=== PATIENT | male | born 1975 | race Caucasian/White ===

== ENCOUNTER 2018-07-03 06:58 | Inpatient (IN) | payer MEDICAID ==
[~2018-07-03] VITALS: Ht 170.2 cm; Wt 84.9 kg
[~2018-07-03 06:58] MED LIST: LEVE500T53 PO; LEVO25TA9 PO; OMEP20 PO; QUET100T PO
[2018-07-03] MEDS ORDERED: QUET200T PO (11:04)
[2018-07-03] MEDS ORDERED: MIRT30 PO (11:04)
[2018-07-03] MEDS ORDERED: QUET100T PO (11:04)
[2018-07-03] MEDS ORDERED: HALO10 PO (11:04)
[2018-07-03] MEDS ORDERED: GABA-531 PO (11:04)
[2018-07-03] MEDS ORDERED: METF-960 PO (11:04)
[2018-07-03 11:07] VITALS: BP 150/95
[2018-07-03] MEDS ORDERED: ZOLPIDEM TARTRATE 10 MG TABLET PO PRN (11:30)
[2018-07-03] MEDS ORDERED: HALOPERIDOL 5 MG TABLET PO PRN (11:30)
[2018-07-03 16:24] VITALS: BP 136/88
[2018-07-03] MEDS: BENZTROPINE MESYLATE 1 MG TABLET PO SCH (16:39)
[2018-07-03 17:19] LABS: GLUCOMETER DEV NAME(LOC) BV2S.; GLUCOSE,POINT OF CARE 169 MG/DL (70-110)
[2018-07-03] MEDS ORDERED: GLUCAGON,HUMAN RECOMBINANT 1 MG VIAL IM PRN (19:00)
[2018-07-03 20:59] LABS: GLUCOMETER DEV NAME(LOC) BV2S.; GLUCOSE,POINT OF CARE 132 MG/DL (70-110)
[2018-07-03] MEDS ORDERED: HALOPERIDOL 10 MG TABLET PO SCH (21:00)
[2018-07-04 00:50] VITALS: BP 136/86
[2018-07-04] MEDS: LORazepam 2 MG TABLET PO PRN ×3 (05:53→09:56)
[2018-07-04] MEDS: MetFORMIN HCL 500 MG TABLET PO SCH (06:11)
[2018-07-04] MEDS: INSULIN LISPRO 100 UNITS/ML SQ PRN ×4 (06:53→21:46)
[2018-07-04 07:09] LABS: GLUCOMETER DEV NAME(LOC) BV2S.; GLUCOSE,POINT OF CARE 176 MG/DL (70-110)
[2018-07-04 08:08] VITALS: BP 101/60
[2018-07-04 08:50] LABS: BASOPHILS % (AUTO) 0.3 % (0.0-2.0); EOSINOPHILS % (AUTO) 2.4 % (1.0-6.0); HEMATOCRIT 47.2 % (41-53); LYMPHOCYTES # (AUTO) 2.7 K/uL (1.0-4.8); LYMPHOCYTES % (AUTO) 43.8 % (22.0-44.0); MEAN CORPUSCULAR HEMOGLOBIN 32.1 pg (26.0-34.0); MEAN CORPUSCULAR HGB CONC 33.8 G/dL (31.0-37.0); MEAN CORPUSCULAR VOLUME 95 fL (80-100); MONOCYTES # (AUTO) 0.7 K/uL (0.1-1.0); MONOCYTES % (AUTO) 11.7 % (2.0-9.0); NEUTROPHILS # (AUTO) 2.6 K/uL (1.8-7.7); NEUTROPHILS % (AUTO) 41.8 % (40.0-70.0); PLATELET COUNT (AUTO) 250 K/uL (150-450); RED BLOOD CELL COUNT(AUTO) 4.97 MIL/uL (4.50-5.90); RED CELL DISTRIBUTION WIDTH 13.4 % (11.5-14.5)
[2018-07-04] MEDS: GABAPENTIN 300 MG CAPSULE PO SCH ×3 (09:04→17:12)
[2018-07-04] MEDS: BENZTROPINE MESYLATE 1 MG TABLET PO SCH ×2 (09:04→17:13)
[2018-07-04 09:30] LABS: ALANINE AMINOTRANSFERASE 386 U/L (12-78); ALBUMIN 3.6 g/dL (3.4-5.0); ALKALINE PHOSPHATASE 104 U/L (46-116); ANION GAP 9 mmol/L (8-16); ASPARTATE AMINOTRANSFERASE 168 U/L (15-37); BILIRUBIN,TOTAL 0.6 mg/dL (0.1-1.0); CALCIUM, TOTAL 8.6 mg/dL (8.8-10.5); CARBON DIOXIDE 27 mmol/L (22-29); CHLORIDE 101 mmol/L (98-107); CHOL/HDL RATIO 4.8 (4.2-7.3); CHOLESTEROL 114 mg/dL (131-200); CREATININE 0.89 mg/dL (0.60-1.30); FREE T4 (FREE THYROXINE) 1.05 ng/dL (0.76-1.46); GLOMERULAR FILTR. RATE CALC > 60 mL/min (>60); GLUCOSE,RANDOM 228 mg/dL (70-110); HDL CHOLESTEROL 24 mg/dL (40-60); LDL CHOL (CALC.) 73 mg/dL (0-130); POTASSIUM 3.8 mmol/L (3.5-5.1); SODIUM SERUM 137 mmol/L (136-145); THYROID STIMULATING HORMONE 9.08 uIU/mL (0.36-3.74); TOTAL PROTEIN, SERUM 7.9 g/dL (6.4-8.2); TRIGLYCERIDES 83 mg/dL (15-150); UREA NITROGEN, BLOOD 16 mg/dL (7-18)
[2018-07-04 09:44] LABS: HEMOGLOBIN A1C 8.1 % (4.5-6.2)
[2018-07-04] MEDS ORDERED: BACITRACIN 28.4 GM OINTMENT TP PRN (10:00)
[2018-07-04] MEDS ORDERED: ALBUTEROL SULFATE HFA 90 MCG/PUFF 8 GM INHALER IH PRN (10:00)
[2018-07-04] MEDS ORDERED: MAGNESIUM HYDROXIDE SUSPENSION 30 ML UDCUP PO PRN (10:00)
[2018-07-04] MEDS ORDERED: ONDANSETRON HCL 4 MG TABLET PO PRN (10:00)
[2018-07-04] MEDS ORDERED: PETROLATUM,WHITE 28 GM JELLY TP PRN (10:00)
[2018-07-04] MEDS ORDERED: BENZOCAINE/MENTHOL LOZENGE MM PRN (10:00)
[2018-07-04] MEDS ORDERED: CloNIDine HCL 0.1 MG TABLET PO PRN (10:00)
[2018-07-04] MEDS ORDERED: LOPERAMIDE HCL 2 MG CAPSULE PO PRN (10:00)
[2018-07-04] MEDS ORDERED: ACETAMINOPHEN 325 MG TABLET PO PRN (10:00)
[2018-07-04] MEDS ORDERED: MAG HYDROX/AL HYDROX/SIMETH ES 30 ML SUSPENSION UDCUP PO PRN (10:00)
[2018-07-04] MEDS ORDERED: IBUPROFEN 600 MG TABLET PO PRN (10:00)
[2018-07-04 10:39] LABS: GLUCOMETER DEV NAME(LOC) BV2S.; GLUCOSE,POINT OF CARE 169 MG/DL (70-110)
[2018-07-04] MEDS ORDERED: QUEtiapine FUMARATE 100 MG TABLET PO PRN (12:15)
[2018-07-04 16:11] VITALS: BP 118/79
[2018-07-04 16:59] LABS: GLUCOMETER DEV NAME(LOC) BV2S.; GLUCOSE,POINT OF CARE 223 MG/DL (70-110)
[2018-07-04] MEDS ORDERED: QUEtiapine FUMARATE 300 MG TABLET PO SCH (21:00)
[2018-07-04 21:44] LABS: GLUCOMETER DEV NAME(LOC) BV2S.; GLUCOSE,POINT OF CARE 187 MG/DL (70-110)
[2018-07-05 01:12] VITALS: BP 110/61
[2018-07-05] MEDS ORDERED: LEVOTHYROXINE SODIUM 50 MCG TABLET PO SCH (06:30)
[2018-07-05] MEDS: MetFORMIN HCL 500 MG TABLET PO SCH (07:27)
[2018-07-05 08:14] VITALS: BP 131/76
[2018-07-05] MEDS: GABAPENTIN 300 MG CAPSULE PO SCH ×2 (08:47→14:05)
[2018-07-05] MEDS: BENZTROPINE MESYLATE 1 MG TABLET PO SCH (09:00)
[2018-07-05] MEDS ORDERED: OMEPRAZOLE 20 MG CAPSULE PO SCH (09:00)
[2018-07-05] MEDS ORDERED: DOCUSATE SODIUM 100 MG CAPSULE PO SCH (09:00)
[2018-07-05 09:04] LABS: AMPHET/METH SCREEN,URINE POSITIVE (NEGATIVE); BARBITURATE SCREEN, URINE NEGATIVE (NEGATIVE); BENZODIAZEPINES SCREEN,URINE NEGATIVE (NEGATIVE); CANNABINOID SCREEN,URINE POSITIVE (NEGATIVE); COCAINE SCREEN,URINE NEGATIVE (NEGATIVE); METHADONE SCREEN, URINE NEGATIVE (NEGATIVE); OPIATE SCREEN,URINE NEGATIVE (NEGATIVE)
[2018-07-05 09:07] LABS: PHENCYCLIDINE SCREEN,URINE NEGATIVE (NEGATIVE)
[2018-07-05] MEDS ORDERED: QUET300T2 PO (13:52)
[2018-07-05] MEDS ORDERED: BENZ1TAB10 PO (13:52)
[2018-07-05] MEDS ORDERED: METF-960 PO (13:54)
[2018-07-05] MEDS ORDERED: LEVO50TA11 PO (13:54)
== END 2018-07-05 16:10 | disposition home or self-care (01) | DRG 750 ==
LOC: B2S 12:17 → EDSTATUS 13:22
PROVIDERS: ADMIT Psychiatry & Neurology Psychiatry; ATTEND Psychiatry & Neurology Psychiatry
DX: F25.9 Schizoaffective disorder, unspecified (principal); E11.65 Type 2 diabetes mellitus with hyperglycemia; G40.909 Epilepsy, unspecified, not intractable, without status epilepticus; F10.10 Alcohol abuse, uncomplicated; F17.200 Nicotine dependence, unspecified, uncomplicated; K21.9 Gastro-esophageal reflux disease without esophagitis; E03.9 Hypothyroidism, unspecified; Z56.0 Unemployment, unspecified; Z79.899 Other long term (current) drug therapy; Z79.890 Hormone replacement therapy
CPT/HCPCS: 80074; 80307; 83036; 84439; 84443

== ENCOUNTER 2018-07-13 12:53 | Emergency (ER) | payer MEDICAID ==
[~2018-07-13] VITALS: Ht 182.9 cm; Wt 90.9 kg
[~2018-07-13 12:53] MED LIST changes: +BENZ1TAB10 PO; +GABA-531 PO; -LEVE500T53 PO; -LEVO25TA9 PO; +LEVO50TA11 PO; +METF-960 PO; -OMEP20 PO; -QUET100T PO; +QUET300T2 PO
[2018-07-13 13:43] LABS: BASOPHILS % (AUTO) 0.3 % (0.0-2.0); EOSINOPHILS % (AUTO) 0.4 % (1.0-6.0); HEMATOCRIT 46.2 % (41-53); HEMOGLOBIN 16.1 g/dL (13.5-17.5); LYMPHOCYTES # (AUTO) 2.9 K/uL (1.0-4.8); LYMPHOCYTES % (AUTO) 31.2 % (22.0-44.0); MEAN CORPUSCULAR HEMOGLOBIN 32.1 pg (26.0-34.0); MEAN CORPUSCULAR HGB CONC 34.9 G/dL (31.0-37.0); MEAN CORPUSCULAR VOLUME 92 fL (80-100); MONOCYTES # (AUTO) 0.9 K/uL (0.1-1.0); MONOCYTES % (AUTO) 9.7 % (2.0-9.0); NEUTROPHILS # (AUTO) 5.3 K/uL (1.8-7.7); NEUTROPHILS % (AUTO) 58.4 % (40.0-70.0); PLATELET COUNT (AUTO) 240 K/uL (150-450); RED BLOOD CELL COUNT(AUTO) 5.02 MIL/uL (4.50-5.90); RED CELL DISTRIBUTION WIDTH 13.1 % (11.5-14.5)
[2018-07-13 13:54] LABS: GLUCOSE,POINT OF CARE 166 MG/DL (70-110)
[2018-07-13 13:58] LABS: ALANINE AMINOTRANSFERASE 240 U/L (12-78); ALBUMIN 3.8 g/dL (3.4-5.0); ALKALINE PHOSPHATASE 107 U/L (46-116); ANION GAP 6 mmol/L (8-16); ASPARTATE AMINOTRANSFERASE 80 U/L (15-37); BILIRUBIN,TOTAL 0.4 mg/dL (0.1-1.0); CALCIUM, TOTAL 9.1 mg/dL (8.8-10.5); CARBON DIOXIDE 30 mmol/L (22-29); CHLORIDE 101 mmol/L (98-107); CREATININE 0.76 mg/dL (0.60-1.30); GLOMERULAR FILTR. RATE CALC > 60 mL/min (>60); GLUCOSE,RANDOM 173 mg/dL (70-110); POTASSIUM 3.9 mmol/L (3.5-5.1); SODIUM SERUM 137 mmol/L (136-145); TOTAL PROTEIN, SERUM 8.3 g/dL (6.4-8.2)
[2018-07-13] MEDS ORDERED: IBUPROFEN 800 MG TABLET PO ONE (14:00)
[2018-07-13] MEDS ORDERED: ACETAMINOPHEN 500 MG TABLET PO ONE (14:00)
[2018-07-13 14:04] LABS: UREA NITROGEN, BLOOD 8 mg/dL (7-18)
[2018-07-13 15:20] LABS: AMPHET/METH SCREEN,URINE POSITIVE (NEGATIVE); BARBITURATE SCREEN, URINE NEGATIVE (NEGATIVE); BENZODIAZEPINES SCREEN,URINE NEGATIVE (NEGATIVE); CANNABINOID SCREEN,URINE POSITIVE (NEGATIVE); COCAINE SCREEN,URINE POSITIVE (NEGATIVE); METHADONE SCREEN, URINE NEGATIVE (NEGATIVE); OPIATE SCREEN,URINE NEGATIVE (NEGATIVE)
[2018-07-13 15:21] LABS: PHENCYCLIDINE SCREEN,URINE NEGATIVE (NEGATIVE)
[2018-07-13 16:30] VITALS: BP 132/72
== END 2018-07-13 17:09 | disposition home or self-care (01) ==
LOC: EMS 12:54
DX: F20.9 Schizophrenia, unspecified (principal); F15.10 Other stimulant abuse, uncomplicated; F11.10 Opioid abuse, uncomplicated; F12.90 Cannabis use, unspecified, uncomplicated; I10 Essential (primary) hypertension; F32.9 Major depressive disorder, single episode, unspecified; F17.210 Nicotine dependence, cigarettes, uncomplicated; Z59.0 Homelessness; Z79.899 Other long term (current) drug therapy
CPT/HCPCS: 36415; 80053; 80307; 82962; 85025; 99284; G0480

== ENCOUNTER 2018-07-15 23:48 | Emergency (ER) | payer MEDICAID ==
[~2018-07-15] VITALS: Ht 177.8 cm; Wt 86.4 kg
[2018-07-16] MEDS ORDERED: INSLAN SQ (00:11)
[2018-07-16 00:14] LABS: GLUCOSE,POINT OF CARE 185 MG/DL (70-110)
[2018-07-16 01:10] LABS: BASOPHILS % (AUTO) 0.3 % (0.0-2.0); EOSINOPHILS % (AUTO) 1.4 % (1.0-6.0); HEMOGLOBIN 17.3 g/dL (13.5-17.5); LYMPHOCYTES # (AUTO) 4.1 K/uL (1.0-4.8); LYMPHOCYTES % (AUTO) 49.1 % (22.0-44.0); MEAN CORPUSCULAR HEMOGLOBIN 32.1 pg (26.0-34.0); MEAN CORPUSCULAR HGB CONC 34.5 G/dL (31.0-37.0); MEAN CORPUSCULAR VOLUME 93 fL (80-100); MONOCYTES % (AUTO) 11.4 % (2.0-9.0); NEUTROPHILS # (AUTO) 3.2 K/uL (1.8-7.7); NEUTROPHILS % (AUTO) 37.8 % (40.0-70.0); PLATELET COUNT (AUTO) 255 K/uL (150-450); RED BLOOD CELL COUNT(AUTO) 5.38 MIL/uL (4.50-5.90); RED CELL DISTRIBUTION WIDTH 13.1 % (11.5-14.5)
[2018-07-16 01:20] LABS: ANION GAP 6 mmol/L (8-16); CALCIUM, TOTAL 8.8 mg/dL (8.8-10.5); CARBON DIOXIDE 30 mmol/L (22-29); CHLORIDE 101 mmol/L (98-107); CREATININE 0.91 mg/dL (0.60-1.30); GLOMERULAR FILTR. RATE CALC > 60 mL/min (>60); GLUCOSE,RANDOM 160 mg/dL (70-110); POTASSIUM 3.9 mmol/L (3.5-5.1); SODIUM SERUM 137 mmol/L (136-145); UREA NITROGEN, BLOOD 11 mg/dL (7-18)
[2018-07-16 01:25] LABS: ALANINE AMINOTRANSFERASE 209 U/L (12-78); ALKALINE PHOSPHATASE 119 U/L (46-116); ASPARTATE AMINOTRANSFERASE 90 U/L (15-37); TOTAL PROTEIN, SERUM 8.8 g/dL (6.4-8.2)
[2018-07-16 03:05] LABS: AMPHET/METH SCREEN,URINE POSITIVE (NEGATIVE); BARBITURATE SCREEN, URINE NEGATIVE (NEGATIVE); BENZODIAZEPINES SCREEN,URINE NEGATIVE (NEGATIVE); CANNABINOID SCREEN,URINE POSITIVE (NEGATIVE); COCAINE SCREEN,URINE NEGATIVE (NEGATIVE); METHADONE SCREEN, URINE NEGATIVE (NEGATIVE); OPIATE SCREEN,URINE NEGATIVE (NEGATIVE); PHENCYCLIDINE SCREEN,URINE NEGATIVE (NEGATIVE)
[2018-07-16 05:10] VITALS: BP 145/96
== END 2018-07-16 05:24 | disposition home or self-care (01) ==
LOC: EMS 23:48
DX: F20.9 Schizophrenia, unspecified (principal); F15.10 Other stimulant abuse, uncomplicated; F41.9 Anxiety disorder, unspecified; I10 Essential (primary) hypertension; F17.210 Nicotine dependence, cigarettes, uncomplicated; F12.90 Cannabis use, unspecified, uncomplicated; F14.90 Cocaine use, unspecified, uncomplicated; F11.90 Opioid use, unspecified, uncomplicated; F19.90 Other psychoactive substance use, unspecified, uncomplicated; Z59.0 Homelessness; Z79.84 Long term (current) use of oral hypoglycemic drugs; Z79.4 Long term (current) use of insulin
CPT/HCPCS: 36415; 80053; 80307; 82962; 85025; 99284; 99406; G0480

== ENCOUNTER 2018-10-07 07:24 | Inpatient (IN) | payer MEDICAID ==
[2018-10-07] VITALS (9 sets, daily range): BP systolic 110–149; BP diastolic 60–91
[~2018-10-07] VITALS: Ht 170.2 cm; Wt 85.4 kg
[~2018-10-07 07:24] MED LIST changes: +INSLAN SQ
[2018-10-07] MEDS ORDERED: TRAZ-252 PO (08:52)
[2018-10-07] MEDS ORDERED: LORazepam 2 MG TABLET PO PRN (09:00)
[2018-10-07] MEDS ORDERED: ZOLPIDEM TARTRATE 10 MG TABLET PO PRN (09:00)
[2018-10-07] MEDS ORDERED: HALOPERIDOL 5 MG TABLET PO PRN (09:00)
[2018-10-07] MEDS ORDERED: HydrOXYzine PAMOATE 50 MG CAPSULE PO PRN ×2 (11:00)
[2018-10-07] MEDS ORDERED: ACETAMINOPHEN 325 MG TABLET PO PRN (11:00)
[2018-10-07] MEDS ORDERED: MAG HYDROX/AL HYDROX/SIMETH ES 30 ML SUSPENSION UDCUP PO PRN ×2 (11:00)
[2018-10-07] MEDS ORDERED: CYANOCOBALAMIN 1,000 MCG/ML VIAL IM ONE (11:00)
[2018-10-07] MEDS ORDERED: LOPERAMIDE HCL 2 MG CAPSULE PO PRN ×2 (11:00)
[2018-10-07] MEDS ORDERED: PROMETHAZINE HCL 25 MG TABLET PO PRN (11:00)
[2018-10-07] MEDS ORDERED: TUBERCULIN, PURIFIED PROTEIN DERIVATIVE 5 TU/0.1 ML SYRINGE ID ONE (11:00)
[2018-10-07] MEDS ORDERED: CloNIDine HCL 0.1 MG TABLET PO PRN (11:00)
[2018-10-07] MEDS ORDERED: OLANZapine 5 MG RAPDIS TABLET PO PRN ×2 (11:00)
[2018-10-07] MEDS ORDERED: IBUPROFEN 600 MG TABLET PO PRN (11:00)
[2018-10-07] MEDS ORDERED: MAGNESIUM HYDROXIDE SUSPENSION 30 ML UDCUP PO PRN (11:00)
[2018-10-07] MEDS ORDERED: GuaiFENesin/D-METHORPHAN [SUGAR-FREE] 200-20MG/10 ML SYRUP UDCUP PO PRN (11:00)
[2018-10-07] MEDS: CloNIDine HCL 0.1 MG TABLET PO SCH ×3 (12:43→21:02)
[2018-10-07] MEDS ORDERED: -PHARMACY VACCINE NOTE- MISC ONE (13:15)
[2018-10-07] MEDS: GABAPENTIN 300 MG CAPSULE PO SCH ×3 (13:34→20:41)
[2018-10-07] MEDS: ACAMPROSATE CALCIUM 333 MG DR TABLET PO SCH ×2 (13:34→16:41)
[2018-10-07 14:26] LABS: GLUCOMETER DEV NAME(LOC) BV2S.; GLUCOSE,POINT OF CARE 192 MG/DL (70-110)
[2018-10-07] MEDS: THIAMINE HCL 100 MG TABLET PO SCH (16:41)
[2018-10-07] MEDS ORDERED: OLANZapine 5 MG RAPDIS TABLET PO SCH (21:00)
[2018-10-08] VITALS (8 sets, daily range): BP systolic 115–139; BP diastolic 62–84
[2018-10-08] MEDS: CloNIDine HCL 0.1 MG TABLET PO SCH ×4 (05:36→20:27)
[2018-10-08 07:42] LABS: BASOPHILS % (AUTO) 0.2 % (0.0-2.0); EOSINOPHILS % (AUTO) 2.1 % (1.0-6.0); HEMATOCRIT 43.2 % (41-53); HEMOGLOBIN 14.7 g/dL (13.5-17.5); LYMPHOCYTES # (AUTO) 3.3 K/uL (1.0-4.8); LYMPHOCYTES % (AUTO) 31.5 % (22.0-44.0); MEAN CORPUSCULAR HEMOGLOBIN 32.4 pg (26.0-34.0); MEAN CORPUSCULAR HGB CONC 34.1 G/dL (31.0-37.0); MEAN CORPUSCULAR VOLUME 95 fL (80-100); MONOCYTES % (AUTO) 10.1 % (2.0-9.0); NEUTROPHILS # (AUTO) 5.8 K/uL (1.8-7.7); NEUTROPHILS % (AUTO) 56.1 % (40.0-70.0); PLATELET COUNT (AUTO) 259 K/uL (150-450); RED BLOOD CELL COUNT(AUTO) 4.55 MIL/uL (4.50-5.90); RED CELL DISTRIBUTION WIDTH 13.7 % (11.5-14.5)
[2018-10-08 07:51] LABS: HEMOGLOBIN A1C 6.6 % (4.5-6.2)
[2018-10-08 08:19] LABS: ALANINE AMINOTRANSFERASE 18 U/L (12-78); ALKALINE PHOSPHATASE 141 U/L (46-116); ANION GAP 9 mmol/L (8-16); ASPARTATE AMINOTRANSFERASE 25 U/L (15-37); BILIRUBIN,TOTAL 0.5 mg/dL (0.1-1.0); CALCIUM, TOTAL 8.7 mg/dL (8.8-10.5); CARBON DIOXIDE 28 mmol/L (22-29); CHLORIDE 103 mmol/L (98-107); CHOL/HDL RATIO 5.5 (4.2-7.3); CHOLESTEROL 143 mg/dL (131-200); CREATININE 0.69 mg/dL (0.60-1.30); FREE T4 (FREE THYROXINE) 0.84 ng/dL (0.76-1.46); GLOMERULAR FILTR. RATE CALC > 60 mL/min (>60); GLUCOSE,RANDOM 145 mg/dL (70-110); HDL CHOLESTEROL 26 mg/dL (40-60); LDL CHOL (CALC.) 100 mg/dL (0-130); SODIUM SERUM 140 mmol/L (136-145); THYROID STIMULATING HORMONE 3.19 uIU/mL (0.36-3.74); TOTAL PROTEIN, SERUM 7.2 g/dL (6.4-8.2); TRIGLYCERIDES 85 mg/dL (15-150); UREA NITROGEN, BLOOD 4 mg/dL (7-18)
[2018-10-08] MEDS ORDERED: ONDANSETRON HCL 4 MG TABLET PO PRN (08:30)
[2018-10-08] MEDS: THIAMINE HCL 100 MG TABLET PO SCH ×2 (09:18→16:38)
[2018-10-08] MEDS: FOLIC ACID 1 MG TABLET PO SCH (09:18)
[2018-10-08] MEDS: GABAPENTIN 300 MG CAPSULE PO SCH ×4 (09:18→20:27)
[2018-10-08] MEDS: MULTIVITAMINS WITH MINERALS, THERAPEUTIC TABLET PO SCH (09:18)
[2018-10-08] MEDS: ACAMPROSATE CALCIUM 333 MG DR TABLET PO SCH ×3 (09:19→16:38)
[2018-10-08] MEDS: CEPHALEXIN MONOHYDRATE 500 MG CAPSULE PO SCH ×2 (10:53→17:22)
[2018-10-08] MEDS: QUEtiapine FUMARATE 25 MG TABLET PO SCH (16:38)
[2018-10-08] MEDS ORDERED: GLUCAGON,HUMAN RECOMBINANT 1 MG VIAL IM PRN (19:30)
[2018-10-08] MEDS ORDERED: QUEtiapine FUMARATE 100 MG TABLET PO SCH (21:00)
[2018-10-09] MEDS: CEPHALEXIN MONOHYDRATE 500 MG CAPSULE PO SCH ×4 (00:22→23:45)
[2018-10-09 00:45] VITALS: BP 102/60
[2018-10-09 00:46] VITALS: BP 102/60
[2018-10-09] MEDS: CloNIDine HCL 0.1 MG TABLET PO SCH ×4 (05:56→22:08)
[2018-10-09 06:11] LABS: GLUCOMETER DEV NAME(LOC) BV2S.; GLUCOSE,POINT OF CARE 177 MG/DL (70-110)
[2018-10-09] MEDS: INSULIN LISPRO 100 UNITS/ML SQ PRN ×2 (06:38→16:51)
[2018-10-09 08:22] VITALS: BP 108/62
[2018-10-09] MEDS: THIAMINE HCL 100 MG TABLET PO SCH ×2 (09:08→16:01)
[2018-10-09] MEDS: GABAPENTIN 300 MG CAPSULE PO SCH ×4 (09:08→20:15)
[2018-10-09] MEDS: FOLIC ACID 1 MG TABLET PO SCH (09:08)
[2018-10-09] MEDS: ACAMPROSATE CALCIUM 333 MG DR TABLET PO SCH ×3 (09:08→16:00)
[2018-10-09] MEDS: MULTIVITAMINS WITH MINERALS, THERAPEUTIC TABLET PO SCH (09:08)
[2018-10-09] MEDS: QUEtiapine FUMARATE 25 MG TABLET PO SCH ×3 (09:08→16:01)
[2018-10-09 16:30] VITALS: BP 110/64
[2018-10-09 21:00] LABS: GLUCOMETER DEV NAME(LOC) BV2S.; GLUCOSE,POINT OF CARE 154 MG/DL (70-110)
[2018-10-09] MEDS ORDERED: QUEtiapine FUMARATE 200 MG TABLET PO SCH (21:00)
[2018-10-10 00:03] VITALS: BP 112/70
[2018-10-10 00:04] VITALS: BP 112/70
[2018-10-10] MEDS: CloNIDine HCL 0.1 MG TABLET PO SCH ×4 (06:00→21:07)
[2018-10-10 06:21] LABS: GLUCOMETER DEV NAME(LOC) BV2S.; GLUCOSE,POINT OF CARE 96 MG/DL (70-110)
[2018-10-10] MEDS: GABAPENTIN 300 MG CAPSULE PO SCH ×2 (09:10→13:00)
[2018-10-10] MEDS: THIAMINE HCL 100 MG TABLET PO SCH ×2 (09:10→16:39)
[2018-10-10] MEDS: QUEtiapine FUMARATE 25 MG TABLET PO SCH ×2 (09:10→13:00)
[2018-10-10] MEDS: MULTIVITAMINS WITH MINERALS, THERAPEUTIC TABLET PO SCH (09:10)
[2018-10-10] MEDS: CEPHALEXIN MONOHYDRATE 500 MG CAPSULE PO SCH ×2 (09:10→16:39)
[2018-10-10] MEDS: ACAMPROSATE CALCIUM 333 MG DR TABLET PO SCH ×3 (09:10→16:39)
[2018-10-10] MEDS: FOLIC ACID 1 MG TABLET PO SCH (09:15)
[2018-10-10 11:20] LABS: GLUCOMETER DEV NAME(LOC) BV2S.; GLUCOSE,POINT OF CARE 277 MG/DL (70-110)
[2018-10-10] MEDS: INSULIN LISPRO 100 UNITS/ML SQ PRN ×2 (11:20→21:07)
[2018-10-10] MEDS ORDERED: QUET25TA34 PO (14:34)
[2018-10-10] MEDS ORDERED: GABA-531 PO (14:34)
[2018-10-10] MEDS ORDERED: QUET200T29 PO (14:34)
[2018-10-10] MEDS ORDERED: ACAM333T7 PO (14:34)
[2018-10-10 16:18] VITALS: BP 100/60
[2018-10-10 16:30] VITALS: BP 100/60
[2018-10-10] MEDS: GABAPENTIN 400 MG CAPSULE PO SCH ×2 (16:39→21:06)
[2018-10-10] MEDS: QUEtiapine FUMARATE 100 MG TABLET PO SCH (16:39)
[2018-10-10] MEDS ORDERED: QUEtiapine FUMARATE 300 MG TABLET PO SCH (21:00)
[2018-10-10 21:05] VITALS: BP 110/67
[2018-10-10 21:46] LABS: GLUCOMETER DEV NAME(LOC) BV2S.; GLUCOSE,POINT OF CARE 386 MG/DL (70-110)
[2018-10-11] VITALS: BP 106/62
[2018-10-11] MEDS: CEPHALEXIN MONOHYDRATE 500 MG CAPSULE PO SCH ×2 (00:01→09:14)
[2018-10-11] MEDS: CloNIDine HCL 0.1 MG TABLET PO SCH ×2 (06:00→12:00)
[2018-10-11] MEDS: LACTOBACILLUS ACIDOPHILUS/BULGARICUS GRANULES PACKET PO SCH (09:00)
[2018-10-11] MEDS ORDERED: SULFAMETHOX/TRIMETH DS 800-160 MG/TABLET PO SCH (09:00)
[2018-10-11] MEDS: MULTIVITAMINS WITH MINERALS, THERAPEUTIC TABLET PO SCH (09:13)
[2018-10-11] MEDS: FOLIC ACID 1 MG TABLET PO SCH (09:13)
[2018-10-11] MEDS: GABAPENTIN 400 MG CAPSULE PO SCH ×2 (09:13→12:41)
[2018-10-11] MEDS: ACAMPROSATE CALCIUM 333 MG DR TABLET PO SCH ×2 (09:14→12:41)
[2018-10-11] MEDS: THIAMINE HCL 100 MG TABLET PO SCH (09:14)
[2018-10-11] MEDS: QUEtiapine FUMARATE 100 MG TABLET PO SCH ×2 (09:14→12:42)
[2018-10-11] MEDS: INSULIN LISPRO 100 UNITS/ML SQ PRN (11:19)
[2018-10-11 11:25] LABS: GLUCOMETER DEV NAME(LOC) BV2S.; GLUCOSE,POINT OF CARE 350 MG/DL (70-110)
[2018-10-11] MEDS ORDERED: CEPH500 PO (11:58)
[2018-10-11] MEDS ORDERED: ACAM333T7 PO (11:58)
[2018-10-11] MEDS ORDERED: QUET300T2 PO (11:58)
[2018-10-11] MEDS ORDERED: GABA-533 PO (11:58)
[2018-10-11] MEDS ORDERED: ACID1GRA PO (11:58)
[2018-10-11] MEDS ORDERED: CEPH-582 PO (11:58)
[2018-10-11] MEDS ORDERED: SULF1TAB42 PO (11:58)
== END 2018-10-11 12:55 | disposition home or self-care (01) | DRG 750 ==
LOC: B2S 09:00
PROVIDERS: ADMIT Psychiatry & Neurology Psychiatry; ATTEND Psychiatry & Neurology Psychiatry
DX: F20.9 Schizophrenia, unspecified (principal); R45.851 Suicidal ideations; E11.65 Type 2 diabetes mellitus with hyperglycemia; E03.9 Hypothyroidism, unspecified; F15.90 Other stimulant use, unspecified, uncomplicated; F11.90 Opioid use, unspecified, uncomplicated; F17.210 Nicotine dependence, cigarettes, uncomplicated; G40.909 Epilepsy, unspecified, not intractable, without status epilepticus; F41.9 Anxiety disorder, unspecified; G47.00 Insomnia, unspecified; K59.00 Constipation, unspecified; Z71.51 Drug abuse counseling and surveillance of drug abuser; Z59.0 Homelessness; Z56.0 Unemployment, unspecified; Z79.4 Long term (current) use of insulin; Z91.19 Patient's noncompliance with other medical treatment and regimen
CPT/HCPCS: 82248; 83036; 84439; 84443; 86592; 87070; 87205; J3420

== ENCOUNTER 2018-10-22 19:42 | Inpatient (IN) | payer MEDICAID ==
[~2018-10-22] VITALS: Ht 170.2 cm; Wt 81.6 kg
[~2018-10-22 19:42] MED LIST changes: +ACAM333T7 PO; +ACID1GRA PO; -BENZ1TAB10 PO; +CEPH-582 PO; +CEPH500 PO; +GABA-533 PO; -INSLAN SQ; -LEVO50TA11 PO; -METF-960 PO; +QUET200T29 PO; +QUET25TA34 PO; +SULF1TAB42 PO
[2018-10-22] MEDS ORDERED: INSLAN SQ (19:54)
[2018-10-22 20:17] LABS: GLUCOSE,POINT OF CARE 185 MG/DL (70-110)
[2018-10-22 21:19] LABS: BASOPHILS % (AUTO) 0.3 % (0.0-2.0); EOSINOPHILS % (AUTO) 6.3 % (1.0-6.0); HEMATOCRIT 45.3 % (41-53); HEMOGLOBIN 15.3 g/dL (13.5-17.5); LYMPHOCYTES # (AUTO) 2.6 K/uL (1.0-4.8); LYMPHOCYTES % (AUTO) 45.1 % (22.0-44.0); MEAN CORPUSCULAR HEMOGLOBIN 31.7 pg (26.0-34.0); MEAN CORPUSCULAR HGB CONC 33.8 G/dL (31.0-37.0); MEAN CORPUSCULAR VOLUME 94 fL (80-100); MONOCYTES # (AUTO) 0.6 K/uL (0.1-1.0); MONOCYTES % (AUTO) 9.5 % (2.0-9.0); NEUTROPHILS # (AUTO) 2.3 K/uL (1.8-7.7); NEUTROPHILS % (AUTO) 38.8 % (40.0-70.0); PLATELET COUNT (AUTO) 275 K/uL (150-450); RED BLOOD CELL COUNT(AUTO) 4.82 MIL/uL (4.50-5.90); RED CELL DISTRIBUTION WIDTH 13.4 % (11.5-14.5)
[2018-10-22 21:33] LABS: ANION GAP 7 mmol/L (8-16); CALCIUM, TOTAL 8.4 mg/dL (8.8-10.5); CARBON DIOXIDE 27 mmol/L (22-29); CHLORIDE 100 mmol/L (98-107); CREATININE 0.79 mg/dL (0.60-1.30); GLOMERULAR FILTR. RATE CALC > 60 mL/min (>60); GLUCOSE,RANDOM 217 mg/dL (70-110); POTASSIUM 3.4 mmol/L (3.5-5.1); SODIUM SERUM 134 mmol/L (136-145); UREA NITROGEN, BLOOD 6 mg/dL (7-18)
[2018-10-22 21:40] LABS: ALANINE AMINOTRANSFERASE 101 U/L (12-78); ALBUMIN 3.4 g/dL (3.4-5.0); ALKALINE PHOSPHATASE 125 U/L (46-116); ASPARTATE AMINOTRANSFERASE 81 U/L (15-37); BILIRUBIN,TOTAL 0.3 mg/dL (0.1-1.0); TOTAL PROTEIN, SERUM 7.4 g/dL (6.4-8.2)
[2018-10-22 23:32] LABS: APPEARANCE,URINE CLEAR (CLEAR); BILIRUBIN,URINE NEGATIVE (NEGATIVE); GLUCOSE, URINE (UA) NEGATIVE (NEGATIVE); KETONES,URINE NEGATIVE (NEGATIVE); LEUKOCYTE ESTERASE ,URINE NEGATIVE (NEGATIVE); NITRATE,URINE NEGATIVE (NEGATIVE); OCCULT BLOOD,URINE NEGATIVE (NEGATIVE); PROTEIN,URINE NEGATIVE (NEGATIVE)
[2018-10-22 23:53] LABS: AMPHET/METH SCREEN,URINE NEGATIVE (NEGATIVE); BARBITURATE SCREEN, URINE NEGATIVE (NEGATIVE); BENZODIAZEPINES SCREEN,URINE NEGATIVE (NEGATIVE); CANNABINOID SCREEN,URINE POSITIVE (NEGATIVE); COCAINE SCREEN,URINE NEGATIVE (NEGATIVE); METHADONE SCREEN, URINE NEGATIVE (NEGATIVE); OPIATE SCREEN,URINE POSITIVE (NEGATIVE); PHENCYCLIDINE SCREEN,URINE NEGATIVE (NEGATIVE)
[2018-10-23] VITALS (11 sets, daily range): BP systolic 111–140; BP diastolic 61–100
[2018-10-23] MEDS ORDERED: MAG HYDROX/AL HYDROX/SIMETH ES 30 ML SUSPENSION UDCUP PO PRN (00:15)
[2018-10-23] MEDS ORDERED: IBUPROFEN 600 MG TABLET PO PRN (00:15)
[2018-10-23] MEDS ORDERED: CloNIDine HCL 0.1 MG TABLET PO PRN ×2 (00:15→09:00)
[2018-10-23] MEDS ORDERED: QUEtiapine FUMARATE 100 MG TABLET PO PRN (00:15)
[2018-10-23] MEDS ORDERED: 0.9% SODIUM CHLORIDE 10 ML SYRINGE IVP PRN (01:30)
[2018-10-23] MEDS ORDERED: ACETAMINOPHEN 325 MG TABLET PO PRN (01:30)
[2018-10-23] MEDS ORDERED: ONDANSETRON HCL 4 MG/2 ML VIAL IVP PRN (01:30)
[2018-10-23] MEDS: CloNIDine HCL 0.1 MG TABLET PO SCH ×4 (06:30→20:06)
[2018-10-23] MEDS ORDERED: PETROLATUM,WHITE 28 GM JELLY TP PRN (09:00)
[2018-10-23] MEDS ORDERED: MAGNESIUM HYDROXIDE SUSPENSION 30 ML UDCUP PO PRN (09:00)
[2018-10-23] MEDS ORDERED: LOPERAMIDE HCL 2 MG CAPSULE PO PRN (09:00)
[2018-10-23] MEDS ORDERED: DOCUSATE SODIUM 100 MG CAPSULE PO PRN (09:00)
[2018-10-23] MEDS ORDERED: BENZOCAINE/MENTHOL LOZENGE MM PRN (09:00)
[2018-10-23] MEDS ORDERED: BACITRACIN 28.4 GM OINTMENT TP PRN (09:00)
[2018-10-23] MEDS ORDERED: ALBUTEROL SULFATE HFA 90 MCG/PUFF 8 GM INHALER IH PRN (09:00)
[2018-10-23] MEDS ORDERED: OMEPRAZOLE 20 MG CAPSULE PO PRN (09:00)
[2018-10-23] MEDS ORDERED: GLUCAGON,HUMAN RECOMBINANT 1 MG VIAL IM PRN (10:15)
[2018-10-23] MEDS ORDERED: POTASSIUM CHLORIDE 20 MEQ ER TABLET PO ONE (10:15)
[2018-10-23] MEDS ORDERED: OLANZapine 5 MG RAPDIS TABLET PO PRN (12:30)
[2018-10-23] MEDS: INSULIN LISPRO 100 UNITS/ML SQ PRN ×2 (12:37→18:30)
[2018-10-23] MEDS: ACAMPROSATE CALCIUM 333 MG DR TABLET PO SCH ×2 (13:50→17:17)
[2018-10-23 14:00] LABS: GLUCOMETER DEV NAME(LOC) BV2S.; GLUCOSE,POINT OF CARE 162 MG/DL (70-110)
[2018-10-23 17:00] LABS: GLUCOMETER DEV NAME(LOC) BV2S.; GLUCOSE,POINT OF CARE 150 MG/DL (70-110)
[2018-10-23] MEDS: INSULIN GLARGINE,HUM.REC.ANLOG 100 UNITS/ML SQ SCH (21:00)
[2018-10-23] MEDS ORDERED: OLANZapine 5 MG TABLET PO SCH (21:00)
[2018-10-24] MEDS: CloNIDine HCL 0.1 MG TABLET PO SCH ×4 (06:00→22:00)
[2018-10-24] MEDS: ACAMPROSATE CALCIUM 333 MG DR TABLET PO SCH ×3 (08:33→16:32)
[2018-10-24 12:09] VITALS: BP 110/70
[2018-10-24 12:11] VITALS: BP 110/72
[2018-10-24 16:19] VITALS: BP 123/86
[2018-10-24 16:20] VITALS: BP 123/86
[2018-10-24] MEDS: INSULIN LISPRO 100 UNITS/ML SQ PRN (16:30)
[2018-10-24 16:31] LABS: GLUCOMETER DEV NAME(LOC) BV2S.; GLUCOSE,POINT OF CARE 201 MG/DL (70-110)
[2018-10-24] MEDS: QUEtiapine FUMARATE 300 MG TABLET PO SCH (21:00)
[2018-10-24] MEDS: TraZODone HCL 100 MG TABLET PO SCH (21:00)
[2018-10-24] MEDS: INSULIN GLARGINE,HUM.REC.ANLOG 100 UNITS/ML SQ SCH (21:00)
[2018-10-25] MEDS: CloNIDine HCL 0.1 MG TABLET PO SCH ×4 (06:00→22:00)
[2018-10-25 08:15] VITALS: BP 135/72
[2018-10-25 08:41] VITALS: BP 135/72
[2018-10-25] MEDS: ACAMPROSATE CALCIUM 333 MG DR TABLET PO SCH ×3 (09:00→16:15)
[2018-10-25 11:15] LABS: GLUCOMETER DEV NAME(LOC) BV2S.; GLUCOSE,POINT OF CARE 164 MG/DL (70-110)
[2018-10-25] MEDS: QUEtiapine FUMARATE 100 MG TABLET PO PRN (12:01)
[2018-10-25 16:05] VITALS: BP 139/73
[2018-10-25] MEDS: INSULIN LISPRO 100 UNITS/ML SQ PRN ×2 (17:03→20:04)
[2018-10-25] MEDS: LORazepam 2 MG TABLET PO PRN (17:04)
[2018-10-25 17:45] LABS: GLUCOMETER DEV NAME(LOC) BV2S.; GLUCOSE,POINT OF CARE 247 MG/DL (70-110)
[2018-10-25] MEDS: TraZODone HCL 100 MG TABLET PO SCH (19:59)
[2018-10-25] MEDS: QUEtiapine FUMARATE 300 MG TABLET PO SCH (19:59)
[2018-10-25] MEDS: INSULIN GLARGINE,HUM.REC.ANLOG 100 UNITS/ML SQ SCH (20:04)
[2018-10-25 20:15] LABS: GLUCOMETER DEV NAME(LOC) BV2S.; GLUCOSE,POINT OF CARE 276 MG/DL (70-110)
[2018-10-26 00:17] VITALS: BP 129/76
[2018-10-26 06:32] LABS: GLUCOMETER DEV NAME(LOC) BV2S.; GLUCOSE,POINT OF CARE 199 MG/DL (70-110)
[2018-10-26 06:37] VITALS: BP 132/82
[2018-10-26] MEDS: LORazepam 2 MG TABLET PO PRN ×2 (06:39→13:10)
[2018-10-26] MEDS: CloNIDine HCL 0.1 MG TABLET PO SCH ×4 (06:39→21:02)
[2018-10-26] MEDS: INSULIN LISPRO 100 UNITS/ML SQ PRN ×4 (07:00→20:09)
[2018-10-26] MEDS: ACAMPROSATE CALCIUM 333 MG DR TABLET PO SCH ×3 (07:49→17:00)
[2018-10-26 08:12] VITALS: BP 101/66
[2018-10-26 08:26] VITALS: BP 101/66
[2018-10-26 08:41] LABS: HEMOGLOBIN A1C 6.9 % (4.5-6.2)
[2018-10-26 09:10] LABS: ALANINE AMINOTRANSFERASE 137 U/L (12-78); ALBUMIN 3.1 g/dL (3.4-5.0); ALKALINE PHOSPHATASE 101 U/L (46-116); ANION GAP 6 mmol/L (8-16); ASPARTATE AMINOTRANSFERASE 88 U/L (15-37); BILIRUBIN,TOTAL 0.2 mg/dL (0.1-1.0); CALCIUM, TOTAL 8.8 mg/dL (8.8-10.5); CARBON DIOXIDE 26 mmol/L (22-29); CHLORIDE 104 mmol/L (98-107); CHOL/HDL RATIO 3.9 (4.2-7.3); CHOLESTEROL 94 mg/dL (131-200); CREATININE 0.57 mg/dL (0.60-1.30); GLOMERULAR FILTR. RATE CALC > 60 mL/min (>60); GLUCOSE,RANDOM 186 mg/dL (70-110); HDL CHOLESTEROL 24 mg/dL (40-60); LDL CHOL (CALC.) 57 mg/dL (0-130); SODIUM SERUM 136 mmol/L (136-145); TOTAL PROTEIN, SERUM 6.8 g/dL (6.4-8.2); TRIGLYCERIDES 65 mg/dL (15-150); UREA NITROGEN, BLOOD 10 mg/dL (7-18)
[2018-10-26 09:11] LABS: FREE T4 (FREE THYROXINE) 0.73 ng/dL (0.76-1.46); THYROID STIMULATING HORMONE 2.92 uIU/mL (0.36-3.74)
[2018-10-26 11:16] LABS: GLUCOMETER DEV NAME(LOC) BV2S.; GLUCOSE,POINT OF CARE 343 MG/DL (70-110)
[2018-10-26 16:08] VITALS: BP 119/69
[2018-10-26 16:09] VITALS: BP 119/69
[2018-10-26 16:46] LABS: GLUCOMETER DEV NAME(LOC) BV2S.; GLUCOSE,POINT OF CARE 243 MG/DL (70-110)
[2018-10-26] MEDS: QUEtiapine FUMARATE 100 MG TABLET PO PRN (16:46)
[2018-10-26] MEDS: TraZODone HCL 100 MG TABLET PO SCH (20:03)
[2018-10-26] MEDS: QUEtiapine FUMARATE 300 MG TABLET PO SCH (20:03)
[2018-10-26] MEDS: INSULIN GLARGINE,HUM.REC.ANLOG 100 UNITS/ML SQ SCH (20:09)
[2018-10-26 20:12] LABS: GLUCOMETER DEV NAME(LOC) BV2S.; GLUCOSE,POINT OF CARE 291 MG/DL (70-110)
[2018-10-27 01:20] VITALS: BP 122/77
[2018-10-27] MEDS: QUEtiapine FUMARATE 100 MG TABLET PO PRN ×3 (01:56→16:54)
[2018-10-27] MEDS: CloNIDine HCL 0.1 MG TABLET PO SCH ×4 (06:00→21:31)
[2018-10-27 08:16] VITALS: BP 120/76
[2018-10-27 08:19] VITALS: BP 120/76
[2018-10-27] MEDS: ACAMPROSATE CALCIUM 333 MG DR TABLET PO SCH ×3 (08:24→16:54)
[2018-10-27] MEDS ORDERED: LORazepam 2 MG/ML VIAL ONE (10:43)
[2018-10-27] MEDS ORDERED: HALOPERIDOL LACTATE 5 MG/ML VIAL ONE (10:43)
[2018-10-27] MEDS ORDERED: DiphenhydrAMINE HCL 50 MG/ML VIAL ONE (10:44)
[2018-10-27] MEDS ORDERED: LORazepam 2 MG/ML VIAL IM ONE (10:45)
[2018-10-27] MEDS ORDERED: DiphenhydrAMINE HCL 50 MG/ML VIAL IM ONE (10:45)
[2018-10-27] MEDS ORDERED: HALOPERIDOL LACTATE 5 MG/ML VIAL IM ONE (10:45)
[2018-10-27 16:00] VITALS: BP 135/71
[2018-10-27 16:30] VITALS: BP 135/71
[2018-10-27] MEDS: LORazepam 2 MG TABLET PO PRN (16:54)
[2018-10-27] MEDS: INSULIN GLARGINE,HUM.REC.ANLOG 100 UNITS/ML SQ SCH (21:00)
[2018-10-27] MEDS: ZOLPIDEM TARTRATE 10 MG TABLET PO PRN (21:30)
[2018-10-27] MEDS: TraZODone HCL 100 MG TABLET PO SCH (21:30)
[2018-10-27] MEDS: QUEtiapine FUMARATE 300 MG TABLET PO SCH (21:30)
[2018-10-28 06:40] VITALS: BP 106/77
[2018-10-28] MEDS: CloNIDine HCL 0.1 MG TABLET PO SCH ×4 (06:41→21:00)
[2018-10-28] MEDS: QUEtiapine FUMARATE 100 MG TABLET PO SCH ×2 (06:41→13:41)
[2018-10-28] MEDS: DIVALPROEX SODIUM 500 MG ER TABLET PO SCH (10:03)
[2018-10-28] MEDS: LORazepam 2 MG TABLET PO PRN ×2 (10:03→16:49)
[2018-10-28] MEDS: ACAMPROSATE CALCIUM 333 MG DR TABLET PO SCH ×3 (10:04→16:49)
[2018-10-28 12:06] LABS: GLUCOMETER DEV NAME(LOC) BV3N.; GLUCOSE,POINT OF CARE 384 MG/DL (70-110)
[2018-10-28] MEDS: INSULIN LISPRO 100 UNITS/ML SQ PRN ×3 (12:09→20:49)
[2018-10-28] MEDS ORDERED: QUEtiapine FUMARATE 100 MG TABLET PO SCH (13:00)
[2018-10-28 16:00] VITALS: BP 130/74
[2018-10-28] MEDS: HydrOXYzine PAMOATE 50 MG CAPSULE PO PRN (16:49)
[2018-10-28] MEDS: MetFORMIN HCL 500 MG TABLET PO SCH (16:49)
[2018-10-28 17:23] LABS: GLUCOMETER DEV NAME(LOC) BV3N.; GLUCOSE,POINT OF CARE 308 MG/DL (70-110)
[2018-10-28] MEDS: TraZODone HCL 100 MG TABLET PO SCH (20:48)
[2018-10-28] MEDS: QUEtiapine FUMARATE 300 MG TABLET PO SCH (20:48)
[2018-10-28] MEDS: INSULIN GLARGINE,HUM.REC.ANLOG 100 UNITS/ML SQ SCH (20:49)
[2018-10-28 21:00] VITALS: BP 136/82
[2018-10-28] MEDS: ZOLPIDEM TARTRATE 10 MG TABLET PO PRN (21:00)
[2018-10-28 22:08] LABS: GLUCOMETER DEV NAME(LOC) BV3N.; GLUCOSE,POINT OF CARE 264 MG/DL (70-110)
[2018-10-29] MEDS: CloNIDine HCL 0.1 MG TABLET PO SCH ×6 (06:00→21:00)
[2018-10-29] MEDS: MetFORMIN HCL 500 MG TABLET PO SCH ×2 (06:42→16:57)
[2018-10-29] MEDS: QUEtiapine FUMARATE 100 MG TABLET PO SCH ×4 (06:50→15:09)
[2018-10-29] MEDS: ACAMPROSATE CALCIUM 333 MG DR TABLET PO SCH ×5 (09:03→16:58)
[2018-10-29] MEDS: DIVALPROEX SODIUM 500 MG ER TABLET PO SCH (09:03)
[2018-10-29] MEDS: LORazepam 2 MG TABLET PO PRN ×2 (09:04→15:10)
[2018-10-29] MEDS: INSULIN LISPRO 100 UNITS/ML SQ PRN ×3 (11:50→21:02)
[2018-10-29 15:29] LABS: GLUCOMETER DEV NAME(LOC) BV3N.; GLUCOSE,POINT OF CARE 198 MG/DL (70-110)
[2018-10-29] MEDS: HydrOXYzine PAMOATE 50 MG CAPSULE PO PRN (16:58)
[2018-10-29 17:25] LABS: GLUCOMETER DEV NAME(LOC) BV3N.; GLUCOSE,POINT OF CARE 196 MG/DL (70-110)
[2018-10-29 20:58] VITALS: BP 118/76
[2018-10-29] MEDS: ZOLPIDEM TARTRATE 10 MG TABLET PO PRN (21:00)
[2018-10-29] MEDS: TraZODone HCL 100 MG TABLET PO SCH (21:00)
[2018-10-29] MEDS ORDERED: QUEtiapine FUMARATE 200 MG TABLET PO SCH (21:00)
[2018-10-29] MEDS: INSULIN GLARGINE,HUM.REC.ANLOG 100 UNITS/ML SQ SCH (21:03)
[2018-10-29 21:38] LABS: GLUCOMETER DEV NAME(LOC) BV3N.; GLUCOSE,POINT OF CARE 233 MG/DL (70-110)
[2018-10-30 03:54] VITALS: BP 125/74
[2018-10-30] MEDS: CloNIDine HCL 0.1 MG TABLET PO SCH ×2 (06:02→12:21)
[2018-10-30] MEDS: MetFORMIN HCL 500 MG TABLET PO SCH (06:35)
[2018-10-30] MEDS: QUEtiapine FUMARATE 100 MG TABLET PO SCH ×2 (06:42→12:21)
[2018-10-30] MEDS: ACAMPROSATE CALCIUM 333 MG DR TABLET PO SCH ×2 (09:00→12:21)
[2018-10-30] MEDS: DIVALPROEX SODIUM 500 MG ER TABLET PO SCH (09:00)
[2018-10-30] MEDS: LORazepam 2 MG TABLET PO PRN (10:20)
[2018-10-30] MEDS ORDERED: QUET100T33 PO (13:26)
[2018-10-30] MEDS ORDERED: DIVA500T52 PO ×2 (13:26→15:19)
[2018-10-30] MEDS ORDERED: ACAM333T7 PO (13:26)
[2018-10-30] MEDS ORDERED: QUET200T29 PO (13:26)
[2018-10-30] MEDS ORDERED: TRAZ-220 PO ×2 (13:26→15:19)
[2018-10-30] MEDS ORDERED: METF-960 PO (15:19)
== END 2018-10-30 15:40 | disposition home or self-care (01) | DRG 750 ==
LOC: EMS 19:44 → B2S 10-23 02:14 → B3A 10-27 10:01
PROVIDERS: ADMIT Psychiatry & Neurology Psychiatry; ATTEND Psychiatry & Neurology Psychiatry
DX: F25.1 Schizoaffective disorder, depressive type (principal); E11.65 Type 2 diabetes mellitus with hyperglycemia; R45.851 Suicidal ideations; E03.9 Hypothyroidism, unspecified; E87.1 Hypo-osmolality and hyponatremia; E87.6 Hypokalemia; F12.90 Cannabis use, unspecified, uncomplicated; F17.210 Nicotine dependence, cigarettes, uncomplicated; F41.9 Anxiety disorder, unspecified; G40.909 Epilepsy, unspecified, not intractable, without status epilepticus; G47.00 Insomnia, unspecified; I10 Essential (primary) hypertension; K59.00 Constipation, unspecified; Z59.0 Homelessness; Z91.19 Patient's noncompliance with other medical treatment and regimen; Z79.899 Other long term (current) drug therapy
CPT/HCPCS: 80074; 83036; 84439; 84443; 87081; G0480; J1200; J1630; J1815; J2060